=== PATIENT | female | born 1970 | race Caucasian/White ===

== ENCOUNTER 2023-07-01 01:51 | Emergency (ER) | payer BC, OTHER ==
[~2023-07-01] VITALS: Ht 167.6 cm; Wt 142.9 kg
[~2023-07-01 01:51] MED LIST: ATEN25 PO; CHOL10002 PO; ESCI20; ESCI5 PO; ESTR2 PO; IBUP800 PO; LORA10 PO; LOSARTAN POTAS100 MG PO; OXYACE5T; OXYACE5T PO; PROM25 PO; Super B Comple150 MG PO; WOMEN'S DAILY1 EACH PO; YAZMINE
[2023-07-01] MEDS ORDERED: Albuterol 2.5 MG/3 ML VIAL INH SCH (02:00)
[2023-07-01] MEDS ORDERED: MethylPREDNISolone Sod Succ 125 MG Vial IV ONE (02:00)
[2023-07-01] MEDS ORDERED: ABILIFY MYCITE5 M2 PO (02:02)
[2023-07-01] MEDS ORDERED: PRED20 PO (02:03)
[2023-07-01] MEDS ORDERED: AMLO10 PO (02:03)
[2023-07-01] MEDS ORDERED: Ipratropium Bromide INH 0.02% 0.5 mg/2.5ML Vial INH SCH (02:05)
[2023-07-01 02:19] LABS: BASOPHILS ABSOLUTE AUTO 0.02 K/mm3 (0.00-0.23); BASOPHILS PERCENT AUTO 0 % (0-2); EOSINOPHILS ABSOLUTE AUTO 0.06 K/mm3 (0.00-0.68); EOSINOPHILS PERCENT AUTO 1 % (0-6); Hematocrit 36.6 % (33.0-51.0); Mean Corpuscular HGB 27.5 pg (26.0-34.0); Mean Corpuscular HGB Conc 32.8 g/dL (31.5-36.5); Mean Corpuscular Volume 84 fL (80-100); Mean Platelet Volume 8.9 fL (9.1-12.4); Platelet Count 255 K/mm3 (150-400); RDW Coefficient Variation 13.4 % (11.7-14.2); RDW Standard Deviation 41.2 fL (35.1-46.3); Red Blood Cell Count 4.37 M/mm3 (3.80-5.20); White Blood Cell Count 8.73 K/mm3 (4.00-11.30)
[2023-07-01 02:21] LABS: IMMATURE GRAN ABSOLUTE AUTO 0.04 K/mm3 (0.00-0.10); IMMATURE GRAN PERCENT AUTO 1 % (0-1); LYMPHOCYTES ABSOLUTE AUTO 1.63 K/mm3 (0.84-5.20); LYMPHOCYTES PERCENT AUTO 19 % (21-46); MONOCYTES ABSOLUTE AUTO 0.79 K/mm3 (0.16-1.47); MONOCYTES PERCENT AUTO 9 % (4-13); NEUTROPHILS ABSOLUTE AUTO 6.19 K/mm3 (1.96-9.15); NEUTROPHILS PERCENT AUTO 71 % (41-73)
[2023-07-01 02:40] LABS: Albumin/Globulin Ratio 0.8 (0.8-1.8); Bilirubin, Total 0.3 mg/dL (0.1-1.0); Bun/Creatinine Ratio 13.3 (12.0-20.0); Creatinine, Blood 0.75 mg/dL (0.40-1.00); Globulin, Blood 3.8 g/dL (2.2-4.0); Potassium, Blood 3.3 mmol/L (3.5-5.5); Total Protein, Blood 6.8 g/dL (6.4-8.2)
[2023-07-01 03:06] LABS: Influenza A, PCR NEGATIVE (NEGATIVE); Influenza B, PCR NEGATIVE (NEGATIVE); Resp Syncytial Virus, PCR NEGATIVE (NEGATIVE); SARS-Cov-2 (COVID-19) PCR, MMC NEGATIVE (NEGATIVE)
[2023-07-01 06:19] VITALS: BP 146/76
[2023-07-01] MEDS ORDERED: ALBU90OI INH (06:22)
[2023-07-01] MEDS ORDERED: AZIT250 PO (06:22)
== END 2023-07-01 06:28 | disposition home or self-care (01) ==
LOC: ER 01:51
PROVIDERS: Emergency Medicine
DX: J18.9 Pneumonia, unspecified organism (principal); I10 Essential (primary) hypertension; Z88.2 Allergy status to sulfonamides; Z88.8 Allergy status to other drugs, medicaments and biological substances; Z79.899 Other long term (current) drug therapy; Z79.890 Hormone replacement therapy
CPT/HCPCS: 0241U; 71045; 71260; 80053; 83880; 84484; 85025; 85379; 93005; 93010; 94644; 94645; 94664; 96374-59; 99285-25; J2930; Q9967